=== PATIENT | female | born 1970 | race Caucasian/White ===

== ENCOUNTER 2025-08-10 06:33 | Observation (INO) | payer OTHER ==
[2025-08-10] VITALS (23 sets, daily range): BP systolic 92–143; BP diastolic 56–99; PULSE 64–88; RESP 13–19; TEMP 97.2–97.6; O2SAT 93–100
[~2025-08-10] VITALS: Ht 163.8 cm; Wt 77.1 kg
[~2025-08-10 06:33] MED LIST: CETI10CA PO; LEVO125T PO; PARO10TA4 PO
[2025-08-10] MEDS: ceFAZolin 2gm/dext,iso 50mL 50 ML IV ONE ×2 (07:23→19:58)
[2025-08-10] MEDS: ringers solution, lacted 1,000 ML IV SCH ×2 (07:40→10:35)
[2025-08-10] MEDS ORDERED: vancomycin 1,000mg inj ONE (10:15)
[2025-08-10] MEDS ORDERED: BUPIVAcaine 2.5mg/ml inj 50ml vial (contains preservative) ONE (10:15)
[2025-08-10] MEDS ORDERED: cloNIDine hcl/PF 100mcg/ml inj ONE (10:23)
[2025-08-10] MEDS ORDERED: fentaNYL/PF 50MCG/1 ML 2ML syringe ONE ×2 (10:27→11:22)
[2025-08-10] MEDS ORDERED: midazolam 1 mg/ML 2ml injection ONE (10:29)
[2025-08-10] MEDS ORDERED: ROPIVAcaine 0.5% (5mg/ml) 30ml vial ONE (10:31)
[2025-08-10] MEDS ORDERED: propofol inj 20 ML IV ONE (10:31)
[2025-08-10] MEDS ORDERED: fentaNYL/PF 50MCG/1 ML 2ML syringe IV PRN ×2 (10:35)
[2025-08-10] MEDS ORDERED: labetalol 20mg/4ml (5mg/ml) syringe IV PRN (10:35)
[2025-08-10] MEDS ORDERED: hydrALAZINE 20mg/ml inj. IV PRN (10:35)
[2025-08-10] MEDS ORDERED: HYDROmorphone/PF 0.2 MG/ML SYRINGE IV PRN ×2 (10:35)
[2025-08-10] MEDS: ondansetron/PF 4mg/2ml inj IV PRN (15:47)
--- NOTE | 2025-08-11 01:54 | OPERATIVE REPORT ---
DATE OF SURGERY: 08/10/2025 DICTATING PHYSICIAN: Barrera Lane DPM SURGEON: Barrera Lane DPM PREOPERATIVE DIAGNOSES: 1. Painful hardware, right ankle. 2. 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 POSTOPERATIVE DIAGNOSES: 1. Painful hardware, right ankle. 2. Short Achilles tendon, tight heel/tight heel cord, right ankle. 3. 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 PROCEDURES: 1. Removal of several screws along the distal tibia and medial malleolus area. 2. An Achilles tendon lengthening, right ankle. 3. A total ankle replacement utilizing the [place] 28 Blomkest stem total ankle system. COMPLICATIONS: None. A gram stain was performed intraoperatively due to the fact that there was hardware in the area for the last 20 years. The gram stain was negative with no white blood cells identified based on the lab report that was given to me verbally. ANESTHESIA: The patient was given 2 g of Ancef IV every 30 minutes prior to skin incision. ESTIMATED BLOOD LOSS: Less than 5 mL. Bone cement was used during this case as indicated under the surgeon's guidelines and the surgeon's manual. INDICATIONS FOR SURGERY: Progressive pain and deformity preventing her from performing her activities of daily living. The patient has tried nonsurgical measures consisting of physical therapy, CAM boot immobilization, different types of shoes, custom orthotics, and anti-inflammatory medication. These conservative measures were not successful in reducing a chief complaint of pain and therefore surgical intervention was considered justified. DESCRIPTION OF PROCEDURE: The patient was escorted to the operating room suite where she was prepared and draped in the usual sterile technique. Magali hoods were used by all surgical personnel involved in the case. Additionally, IrriSept was used during the case as well as pulse lavage with 10 mL of Betadine solution and 3 L of saline. Finally, vancomycin powder was doused into the surgical wound at the end of the case. The first part of the procedure consisted of removing the screws that would be in the way and obstruct the ability to perform the total ankle replacement. This was done successfully. Gram stain was performed intraoperatively with negative findings. Once the screws were removed, a tendo-Achilles lengthening procedure was performed by way of a percutaneous triple hemisection procedure. This allowed for increased dorsiflexion range of motion during the case, since ankle range of motion was limited due to the tight Achilles. The next part of the procedure consisted of utilizing a C-arm and the Blomkest manual alignment guide in the instrument tray for the [place] 28 Blomkest stemmed total ankle system. The steps implemented in performing the procedure were according to the surgeon's manual. There was no deviation in technique. Pulse lavage was used throughout the case. Any bleeding vessels were bovied. Neurovascular structures were protected throughout the case. C-arm confirmed appropriate positioning of the ankle system which consisted of a size 3 right tibial tray, a size 2 talar component, and a size 2 polyethylene insert with a thickness of 10 mm. The tibial tray was a size 3L for the right side. The patient demonstrated good clinical range of motion intraoperatively at the conclusion of the case. The tourniquet was deflated after 2 hours, and after 15 minutes of deflation, was reinflated for a short period of time. Vancomycin powder was also doused into the surgical wound at the conclusion of the case. The intraoperative findings confirmed significant posttraumatic arthritic changes of the ankle joint with significant loss of articular cartilage. There were also bony ossicles within the joint area. These were resected appropriately. Tissues were closed in layers. Capillary refill time was noted to be instantaneous with toes 1 through 5 to the right foot at the conclusion of the case. The appropriate postoperative dressings were applied and then a plaster of juan manuel [place]-style splint was applied to the right lower extremity with the foot at 90 degrees of the leg. Mupirocin ointment was applied over the surgical incision sites as well. The patient was then escorted to PACU with the appropriate postoperative instructions. The patient will spend the night for a 23-hour observation. Barrera Lane DPM TID: [id number] RECEIPT: [id number] RUBY MCLEAN
[2025-08-11 02:00] VITALS: BP 90/57; PULSE 75; TEMP 98.1; O2SAT 95
[2025-08-11 06:00] VITALS: BP 98/58; PULSE 67; RESP 12; TEMP 98.6; O2SAT 97
[2025-08-11 08:00] VITALS: RESP 12; O2SAT 97
[2025-08-11] MEDS: ibuprofen tablet 400 MG TABLET PO PRN (09:09)
[2025-08-11 10:00] VITALS: BP 111/60; PULSE 68; RESP 14; TEMP 98.1; O2SAT 99
--- NOTE | 2025-08-12 09:05 | PROGRESS NOTE ---
DATE: 08/11/2025 DICTATING PHYSICIAN: Barrera Lane DPM The patient was seen at bedside on 08/11/2025 following total ankle replacement of right ankle. The patient is doing well. Vital signs are stable. The splint is intact. Capillary refill time is instantaneous for toes 1 through 5 to the right foot. She did have physical therapy training instructing her on nonweightbearing to the right lower extremity. The patient is eating and tolerating fluids well. She has pain that is manageable with oral pain medication. The patient will be discharged today to conclude a 23-hour observation. The patient will follow up with me in 2 weeks' time. She will also be given my customized postop instruction sheet before discharge. Barrera Lane DPM TID: [id number] RECEIPT: [id number] SS/M Rupal
== END 2025-08-11 15:15 | disposition home or self-care (01) ==
LOC: PAS 06:33 → PAS IN 15:38 → ORTHO 4S 16:57 → UNDOADMIN 16:57 → UNDODISIN 08-11 15:20
PROVIDERS: ADMIT Podiatrist Foot & Ankle Surgery; ATTEND Podiatrist Foot & Ankle Surgery
DX: M19.171 Post-traumatic osteoarthritis, right ankle and foot (principal); M67.01 Short Achilles tendon (acquired), right ankle; M25.571 Pain in right ankle and joints of right foot; E03.9 Hypothyroidism, unspecified; F32.9 Major depressive disorder, single episode, unspecified; F41.9 Anxiety disorder, unspecified; Z79.899 Other long term (current) drug therapy; Z98.890 Other specified postprocedural states
CPT/HCPCS: 73600; 76000; 82948; 87070; 87075; 87081; 96365; 96375; 97161; 97530; A4615; A4618; A6253; A6449; A7000; C1713; C1776; G0378; J0690; J0735; J2250; J2405; J2704; J2795; J3010; J3373; J3490; J7120